=== PATIENT | male | born 1990 | race Hispanic/Latino ===

== ENCOUNTER 2016-07-18 15:16 | Emergency (ER) | payer OTHER ==
[~2016-07-18] VITALS: Ht 175.3 cm; Wt 107.3 kg
[2016-07-18 15:19] VITALS: BP 150/94; PULSE 106; RESP 16; O2SAT 95
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
[2016-07-18] MEDS ORDERED: Tetracaine 0.5% 4 mL Ophthalmic Solution BOTH_EYES ONE (15:35)
[2016-07-18] MEDS ORDERED: Fluorescein 0.6 mg Ophthalmic Strip BOTH_EYES ONE (15:35)
[2016-07-18] MEDS ORDERED: TdaP Vaccine 0.5 mL Inj IM ONE (15:45)
[2016-07-18 17:07] VITALS: BP 142/91; PULSE 97; O2SAT 98
== END 2016-07-18 16:50 | disposition home or self-care (01) ==
LOC: SED 15:16
DX: Z77.098 Contact with and (suspected) exposure to other hazardous, chiefly nonmedicinal, chemicals (principal); Z23 Encounter for immunization; X58.XXXA Exposure to other specified factors, initial encounter; Y92.69 Other specified industrial and construction area as the place of occurrence of the external cause; Y93.89 Activity, other specified; Y99.0 Civilian activity done for income or pay